=== PATIENT | female | born 1980 | race American Indian/Alaskan Native ===

== ENCOUNTER 2020-10-19 22:59 | Emergency (ER) | payer SELFPAY | END 2020-10-19 23:45 | disposition left against medical advice (07) | LOC: ED 22:59 | DX: F41.9 Anxiety disorder, unspecified (principal); Z53.21 Procedure and treatment not carried out due to patient leaving prior to being seen by health care provider ==

== ENCOUNTER 2021-08-09 13:49 | Emergency (ER) | payer SELFPAY ==
[2021-08-09] MEDS ORDERED: IPRATROPIUM 0.02% NEBU 2.5 ML IH ONE (14:32)
[2021-08-09] MEDS ORDERED: ALBUTEROL 2.5 MG/3 ML NEBU IH ONE (14:32)
[2021-08-09] MEDS ORDERED: dexAMETHasone 20 MG/5 ML VIAL IM ONE (14:32)
--- NOTE | 2021-08-09 14:47 | Emergency Department Report ---
- General Chief Complaint: Upper Respiratory Infection Stated Complaint: ASHLEY, SORE THROAT, EYES WATERY Time Seen by Provider: 08/09/21 14:28 Source: patient Mode of arrival: Ambulatory Limitations: No Limitations - History of Present Illness Initial Comments: Patient is a 40-year-old female presents emergency room with complaints of a cough that began 2 days ago. She has associated watery eyes, sneezing, sore throat, chest tightness, mild shortness of breath. Patient states that she believes there is mold present in her home. She denies any fever, vomiting, diarrhea, leg swelling, pleuritic pain. She denies any known sick contacts or recent travel. She has not been vaccinated for COVID-19. No past medical history. No allergies to medications. - Related Data Previous Rx's Medication Instructions Recorded Last Taken Type Acetaminophen/Codeine 1 tab PO Q6H PRN #16 tab 12/24/14 Unknown Rx [Acetaminophen-Codeine #3 TAB] Diclofenac Dr [Marilee Nicholas] 75 mg PO Q12H #20 tablet 12/24/14 Unknown Rx Ibuprofen [Motrin] 600 mg PO Q8H PRN #20 tablet 09/28/18 Unknown Rx Hyoscyamine Subl [Levsin Sl 0.125 0.125 mg SL Q4HR PRN #20 tablet 11/13/19 Unknown Rx TAB] Omeprazole 40 mg PO DAILY #30 capsule.dr 11/13/19 Unknown Rx Albuterol Sulfate [Proventil Hfa] 1 - 2 puff IH TID PRN #1 hfa.aer.ad 08/09/21 Unknown Rx Benzonatate [Tessalon Perles] 100 mg PO Q8HR PRN #12 capsule 08/09/21 Unknown Rx Loratadine 10 mg PO DAILY #10 tablet 08/09/21 Unknown Rx predniSONE [Deltasone] 40 mg PO QDAY 5 Days #10 tab 08/09/21 Unknown Rx Allergies Allergy/AdvReac Type Severity Reaction Status Date / Time No Known Allergies Allergy Verified 08/09/21 14:30 ED Review of Systems ROS: Stated complaint: ASHLEY, SORE THROAT, EYES WATERY Other details as noted in HPI Comment: All other systems reviewed and negative ED Past Medical Hx - Past Medical History Previous Medical History?: Yes Additional medical history: heart murmure, acid reflux - Surgical History Past Surgical History?: No - Social History Smoking Status: Never Smoker Substance Use Type: Alcohol - Medications Home Medications: Home Medications Medication Instructions Recorded Confirmed Last Taken Type Acetaminophen/Codeine 1 tab PO Q6H PRN #16 tab 12/24/14 Unknown Rx [Acetaminophen-Codeine #3 TAB] Diclofenac Dr [Voltareswati Nicholas] 75 mg PO Q12H #20 tablet 12/24/14 Unknown Rx Ibuprofen [Motrin] 600 mg PO Q8H PRN #20 tablet 09/28/18 Unknown Rx Hyoscyamine Subl [Levsin Sl 0.125 0.125 mg SL Q4HR PRN #20 tablet 11/13/19 Unknown Rx TAB] Omeprazole 40 mg PO DAILY #30 capsule.dr 11/13/19 Unknown Rx Albuterol Sulfate [Proventil Hfa] 1 - 2 puff IH TID PRN #1 hfa.aer.ad 08/09/21 Unknown Rx Benzonatate [Tessalon Perles] 100 mg PO Q8HR PRN #12 capsule 08/09/21 Unknown Rx Loratadine 10 mg PO DAILY #10 tablet 08/09/21 Unknown Rx predniSONE [Deltasone] 40 mg PO QDAY 5 Days #10 tab 08/09/21 Unknown Rx ED Physical Exam - General Limitations: No Limitations General appearance: alert, in no apparent distress - Head Head exam: Present: atraumatic, normocephalic - Eye Eye exam: Present: normal appearance. Absent: conjunctival injection - ENT ENT exam: Present: normal orophraynx, mucous membranes moist, TM's normal bilaterally, normal external ear exam - Respiratory Respiratory exam: Present: wheezes (inspiratory and expiratory bilaterally ), prolonged expiratory. Absent: respiratory distress, rales, rhonchi, stridor, chest wall tenderness, accessory muscle use - Cardiovascular Cardiovascular Exam: Present: regular rate, normal rhythm, normal heart sounds. Absent: systolic murmur, diastolic murmur, rubs, gallop - Neurological Exam Neurological exam: Present: alert, oriented X3 - Psychiatric Psychiatric exam: Present: normal affect, normal mood - Skin Skin exam: Present: warm, dry, intact ED Course Vital Signs 08/09/21 08/09/21 08/09/21 14:24 15:19 16:05 Temperature 99.2 F 98.9 F 98.4 F Pulse Rate 77 90 79 Respiratory 20 14 14 Rate Blood Pressure 162/93 Blood Pressure 133/79 144/76 [Left] O2 Sat by Pulse 97 100 100 Oximetry ED Medical Decision Making - Lab Data Vital Signs 08/09/21 08/09/21 08/09/21 14:24 15:19 16:05 Temperature 99.2 F 98.9 F 98.4 F Pulse Rate 77 90 79 Respiratory 20 14 14 Rate Blood Pressure 162/93 Blood Pressure 133/79 144/76 [Left] O2 Sat by Pulse 97 100 100 Oximetry - Radiology Data Radiology results: report reviewed Ordering Physician: NICOLAS BREWSTER Date of Service: 08/09/21 Procedure(s): XR chest routine 2V Accession Number(s): [id number] cc: NICOLAS BREWSTER Fluoro Time In Minutes: XR chest routine 2V INDICATION / CLINICAL INFORMATION: wheezing, cough. COMPARISON: None available. FINDINGS: SUPPORT DEVICES: None. HEART /PULMONARY VASCULATURE: No significant abnormality. LUNGS / PLEURA: No significant pulmonary or pleural abnormality. No pneumothorax. ADDITIONAL FINDINGS: No significant additional findings. IMPRESSION: 1. No acute findings. Signer Name: Arturo Michelle MD Signed: 08/09/2021 2:56 PM Workstation Name: [id number] Transcribed By: JS Dictated By: ARTURO MICHELLE MD Electronically Authenticated By: ARTURO MICHELLE MD Signed Date/Time: 08/09/211455 DD/ 55 TD/TT: - Medical Decision Making Patient is a 40-year-old female presents emergency room with complaints of a cough that began 2 days ago. She has associated watery eyes, sneezing, sore throat, chest tightness, mild shortness of breath. Patient states that she believes there is mold present in her home. She denies any fever, vomiting, diarrhea, leg swelling, pleuritic pain. She denies any known sick contacts or recent travel. She has not been vaccinated for COVID-19. No past medical history. No allergies to medications. Vitals are stable. On exam patient has inspiratory and expiratory wheezing bilaterally. Chest x-ray with no acute process. Patient given nebulizer treatment and steroids IM. On reexamination wheezing has significantly improved. Patient is maintaining oxygen saturations without any difficulty. Symptoms and examination could likely be consistent with acute bronchitis. Discussed with patient outpatient COVID-19 testing and if positive to self quarantine and discuss strict return precautions. Discussed the importance of outpatient follow-up. Advised patient Please take medication as prescribed. Follow-up with your primary care doctor. Return to emergency room for any new or worsening symptoms. Recommend outpatient COVID-19 testing and if positive will need to self quarantine for 10 days from onset of symptoms. Critical care attestation.: If time is entered above; I have spent that time in minutes in the direct care of this critically ill patient, excluding procedure time. ED Disposition Clinical Impression: Acute bronchitis Qualifiers: Bronchitis organism: unspecified organism Qualified Code(s): J20.9 - Acute bronchitis, unspecified Disposition: HOME / SELF CARE / HOMELESS Is pt being admited?: No Does the pt Need Aspirin: No Condition: Stable Instructions: Acute Bronchitis, Adult, [id number], Acute Bronchitis (ED) Additional Instructions: Please take medication as prescribed. Follow-up with your primary care doctor. Return to emergency room for any new or worsening symptoms. Recommend outpatient COVID-19 testing and if positive will need to self quarantine for 10 days from onset of symptoms. Prescriptions: predniSONE [Deltasone] 40 mg PO QDAY 5 Days #10 tab Loratadine 10 mg PO DAILY #10 tablet Albuterol Sulfate [Proventil Hfa] 1 - 2 puff IH TID PRN #1 hfa.aer.ad PRN Reason: wheezing, shortness of breath Benzonatate [Tessalon Perles] 100 mg PO Q8HR PRN #12 capsule PRN Reason: cough Referrals: SAMANTHA BEE MD [Primary Care Provider] - 2-3 Days [facility] [Provider Group] - 2-3 Days MECHELLE FABIAN MD [Staff Physician] - 2-3 Days Time of Disposition: 15:39 Print Language: MONTENEGRIN
--- NOTE | 2021-08-09 15:00 | XRay Report ---
XR chest routine 2V INDICATION / CLINICAL INFORMATION: wheezing, cough. COMPARISON: None available. FINDINGS: SUPPORT DEVICES: None. HEART /PULMONARY VASCULATURE: No significant abnormality. LUNGS / PLEURA: No significant pulmonary or pleural abnormality. No pneumothorax. ADDITIONAL FINDINGS: No significant additional findings. IMPRESSION: 1. No acute findings. Signer Name: Nehemiah Michelle MD Signed: 08/09/2021 2:56 PM Workstation Name: [id number]
[2021-08-09 16:06] VITALS: BP 144/76
== END 2021-08-09 16:06 | disposition home or self-care (01) ==
LOC: ED 13:49
DX: J20.9 Acute bronchitis, unspecified (principal); Z72.89 Other problems related to lifestyle; Z98.890 Other specified postprocedural states; Z79.899 Other long term (current) drug therapy
CPT/HCPCS: 71046; 94640; 96372; 99283; J1100